=== PATIENT | female | born 1940 | race Caucasian/White ===

== ENCOUNTER 2017-11-10 21:32 | Emergency (ER) | payer MEDICARE, BC ==
[2017-11-10] MEDS: morphine 4 MG/ML VIAL IM (22:54)
[2017-11-10] MEDS: KETOROLAC 30 MG INJ IM (22:55)
[2017-11-10 22:59] LABS: URINE BLOOD (Dip) POC Trace-intact (NEGATIVE); URINE GLUCOSE (Dip) POC Negative (NEGATIVE); URINE KETONES (Dip) POC Trace (NEGATIVE); URINE LEUKOCYTE EST (Dip) POC Negative (NEGATIVE); URINE NITRITE (Dip) POC Negative (NEGATIVE); URINE TOTAL PROTEIN POC 1+ (NEGATIVE)
[2017-11-10] MEDS: METHOCARBAMOL 750 MG TAB PO (23:42)
== END 2017-11-11 00:40 | disposition home or self-care (01) ==
LOC: E/R 11-11 00:40
DX: S76.012A Strain of muscle, fascia and tendon of left hip, initial encounter (principal); S39.92XA Unspecified injury of lower back, initial encounter; I10 Essential (primary) hypertension; X58.XXXA Exposure to other specified factors, initial encounter; Y92.9 Unspecified place or not applicable; Z87.891 Personal history of nicotine dependence; Z79.82 Long term (current) use of aspirin; Z79.84 Long term (current) use of oral hypoglycemic drugs
CPT/HCPCS: 72100; 73510; 81003; 96372; 99284-25

== ENCOUNTER 2017-12-01 20:35 | Inpatient (IN) | payer MEDICARE, BC ==
[2017-12-02 00:41] LABS: ADD MAN DIFF? NO
[2017-12-02 00:43] LABS: BASOPHIL # 0.1 10^3/ul (0.0-0.1); BASOPHILS % 0.8 % (0.0-2.0); EOSINOPHILS # 0.6 10^3/ul (0.0-0.5); EOSINOPHILS % 5.7 % (0.0-7.0); HEMATOCRIT 33.7 % (37.0-47.0); HEMOGLOBIN 10.8 g/dl (12.0-16.0); LYMPHOCYTES # 2.9 10^3/ul (0.8-2.9); LYMPHOCYTES % 28.1 % (15.0-51.0); MEAN CORPUSCULAR HEMOGLOBIN 31.9 pg (29.0-33.0); MEAN CORPUSCULAR VOLUME 99.4 fl (82.0-101.0); MONOCYTE # 1.1 10^3/ul (0.3-0.9); MONOCYTES % 10.5 % (0.0-11.0); NEUTROPHIL # 5.6 10^3/ul (1.6-7.5); NEUTROPHILS % 54.6 % (39.0-77.0); PLATELET COUNT 341 10^3/UL (140-415); RED BLOOD COUNT 3.39 10^6/ul (4.20-5.40); RED CELL DISTRIBUTION WIDTH 14.2 % (11.5-14.5)
[2017-12-02 00:43] LABS: WHITE BLOOD COUNT 10.3 10^3/ul (4.8-10.8)
[2017-12-02 00:59] LABS: INR 1.04; PARTIAL THROMBOPLASTIN TIME 29.7 Sec (25.0-35.0); PROTIME 13.7 Sec (11.9-14.9); PT RATIO 1.1
[2017-12-02 01:02] LABS: ALANINE AMINOTRANSFERASE 17 IU/L (13-69); ALBUMIN 4.1 g/dl (3.3-4.9); ALBUMIN/GLOBULIN RATIO 1.28; ALKALINE PHOSPHATASE 64 IU/L (42-121); ANION GAP 15 (8-16); ASPARTATE AMINO TRANSFERASE 19 IU/L (15-46); BILIRUBIN,INDIRECT 0.2 mg/dl (0-1.1); BILIRUBIN,TOTAL 0.2 mg/dl (0.2-1.3); BLOOD UREA NITROGEN 15 mg/dl (7-20); CALCIUM 9.1 mg/dl (8.4-10.2); CARBON DIOXIDE 28 mmol/L (21-31); CHLORIDE 105 mmol/L (97-110); CREATININE 0.86 mg/dl (0.44-1.00); GLUCOSE 99 mg/dl (70-220); POTASSIUM 4.4 mmol/L (3.5-5.1); SODIUM 144 mmol/L (135-144); TOTAL PROTEIN 7.3 g/dl (6.1-8.1)
[2017-12-02] MEDS: PANTOPRAZOLE 40 MG INJ IV ×2 (01:22→08:00)
[2017-12-02] MEDS: METOPROLOL 25 MG TAB PO (02:41)
[2017-12-02] MEDS: HYDROCODONE/APAP (5/325) TAB PO (03:29)
[2017-12-02] MEDS ORDERED: ACETAMINOPHEN 325 MG TAB PO (03:30)
[2017-12-02] MEDS ORDERED: ONDANSETRON 4 MG INJ IV (03:30)
[2017-12-02] MEDS: SOD CHLORIDE 0.45% 1,000 ML IV ×2 (08:00→21:20)
[2017-12-02] MEDS: ATENOLOL 25 MG TAB PO (08:59)
[2017-12-02] MEDS: metFORMIN 500 MG TAB PO (08:59)
[2017-12-02] MEDS: HYDROCODONE/APAP (7.5/325) TAB PO ×4 (09:21→21:35)
[2017-12-02 11:01] LABS: OCCULT BLOOD STOOL POSITIVE (NEGATIVE)
[2017-12-02 13:21] LABS: HEMATOCRIT 30.3 % (37.0-47.0); HEMOGLOBIN 9.8 g/dl (12.0-16.0)
[2017-12-02] MEDS ORDERED: GLUCOSE GEL 15 GRAM TUBE PO ×2 (16:30)
[2017-12-02] MEDS ORDERED: VANCOMYCIN IV PER PHARMACY XX (16:30)
[2017-12-02] MEDS ORDERED: GLUCAGON 1 MG INJ IM (16:30)
[2017-12-02] MEDS ORDERED: GLUCOSE GEL 15 GRAM TUBE BUCCAL (16:30)
[2017-12-02] MEDS ORDERED: DEXTROSE 50% 50 ML SYRINGE IV ×2 (16:30)
[2017-12-02 17:52] LABS: HEMATOCRIT 30.3 % (37.0-47.0); HEMOGLOBIN 9.8 g/dl (12.0-16.0)
[2017-12-02] MEDS: BISACODYL (EC) 5 MG TAB PO ×2 (17:53→21:11)
[2017-12-02] MEDS: PEG/ELECTROLYTES 4L BTL PO ×2 (17:54→21:11)
[2017-12-02 18:12] LABS: ERYTHROCYTE SEDIMENTATION RATE 32 mm/Hr (0-30)
[2017-12-02] MEDS: VANCOMYCIN 2 GM in SOD CHLORIDE 0.9% 500 ML IVPB (21:11)
[2017-12-02] MEDS: ATORVASTATIN 10 MG TAB PO (21:11)
[2017-12-03 00:46] LABS: HEMATOCRIT 31.8 % (37.0-47.0); HEMOGLOBIN 10.2 g/dl (12.0-16.0)
[2017-12-03] MEDS: HYDROCODONE/APAP (7.5/325) TAB PO ×5 (01:27→22:07)
[2017-12-03] MEDS: PANTOPRAZOLE 40 MG INJ IV (05:51)
[2017-12-03 07:05] LABS: HEMATOCRIT 28.9 % (37.0-47.0); HEMOGLOBIN 9.4 g/dl (12.0-16.0)
[2017-12-03] MEDS: metFORMIN 500 MG TAB PO (08:00)
[2017-12-03] MEDS: ATENOLOL 25 MG TAB PO (08:33)
[2017-12-03] MEDS ORDERED: PROPOFOL 20 ML ×2 (10:58→11:35)
[2017-12-03] MEDS ORDERED: ATROPINE 1 MG INJ (11:05)
[2017-12-03] MEDS ORDERED: hydrALAzine 20 MG INJ IV (12:00)
[2017-12-03] MEDS ORDERED: MIDAZOLAM 1 MG/ML 2 ML INJ IV (12:00)
[2017-12-03] MEDS ORDERED: DIPHENHYDRAMINE 50 MG INJ IV (12:00)
[2017-12-03] MEDS ORDERED: EPHEDrine SULFATE 50 MG/5 ML SYG IV (12:00)
[2017-12-03] MEDS ORDERED: MEPERIDINE 25 MG INJ IV (12:00)
[2017-12-03] MEDS ORDERED: ONDANSETRON 4 MG INJ IV (12:00)
[2017-12-03] MEDS ORDERED: METOCLOPRAMIDE 10 MG INJ IV (12:00)
[2017-12-03] MEDS ORDERED: FENTAnyl 50 MCG/ML VIAL IV ×3 (12:00)
[2017-12-03] MEDS ORDERED: LABETALOL HCL 20MG INJ IV (12:00)
[2017-12-03] MEDS ORDERED: OXYCODONE/ACETAMINOPHEN (5/325) TAB PO ×2 (12:00)
[2017-12-03] MEDS: SOD CHLORIDE 0.45% 1,000 ML IV (12:46)
[2017-12-03 14:04] LABS: HEMATOCRIT 29.3 % (37.0-47.0); HEMOGLOBIN 9.4 g/dl (12.0-16.0)
[2017-12-03] MEDS: VANCOMYCIN 1 GM 250 ML IVPB (14:46)
[2017-12-03] MEDS ORDERED: VANCOMYCIN 1.5 GM in SOD CHLORIDE 0.9% 250 ML IVPB (18:00)
[2017-12-03] MEDS: ATORVASTATIN 10 MG TAB PO (21:05)
[2017-12-04] MEDS: SOD CHLORIDE 0.45% 1,000 ML IV ×3 (00:04→21:49)
[2017-12-04] MEDS: VANCOMYCIN 1 GM 250 ML IVPB ×2 (02:52→14:40)
[2017-12-04] MEDS: PANTOPRAZOLE 40 MG INJ IV (05:30)
[2017-12-04] MEDS: metFORMIN 500 MG TAB PO (07:30)
[2017-12-04] MEDS: HYDROCODONE/APAP (7.5/325) TAB PO ×3 (07:30→20:07)
[2017-12-04 07:38] LABS: ADD MAN DIFF? NO
[2017-12-04 07:41] LABS: WHITE BLOOD COUNT 5.8 10^3/ul (4.8-10.8)
[2017-12-04 07:41] LABS: BASOPHIL # 0.1 10^3/ul (0.0-0.1); BASOPHILS % 1.6 % (0.0-2.0); EOSINOPHILS # 0.5 10^3/ul (0.0-0.5); HEMATOCRIT 28.2 % (37.0-47.0); LYMPHOCYTES # 1.3 10^3/ul (0.8-2.9); LYMPHOCYTES % 21.9 % (15.0-51.0); MEAN CORPUSCULAR HEMOGLOBIN 31.6 pg (29.0-33.0); MEAN CORPUSCULAR HGB CONC 31.9 g/dl (32.0-37.0); MEAN CORPUSCULAR VOLUME 98.9 fl (82.0-101.0); MEAN PLATELET VOLUME 10.1 fl (7.4-10.4); MONOCYTE # 0.4 10^3/ul (0.3-0.9); MONOCYTES % 6.6 % (0.0-11.0); NEUTROPHIL # 3.5 10^3/ul (1.6-7.5); NEUTROPHILS % 60.7 % (39.0-77.0); PLATELET COUNT 244 10^3/UL (140-415); RED BLOOD COUNT 2.85 10^6/ul (4.20-5.40); RED CELL DISTRIBUTION WIDTH 14.2 % (11.5-14.5)
[2017-12-04 08:10] LABS: ANION GAP 13 (8-16); BLOOD UREA NITROGEN 11 mg/dl (7-20); CALCIUM 8.4 mg/dl (8.4-10.2); CARBON DIOXIDE 26 mmol/L (21-31); CHLORIDE 109 mmol/L (97-110); CREATININE 0.82 mg/dl (0.44-1.00); GLUCOSE 100 mg/dl (70-220); POTASSIUM 4.3 mmol/L (3.5-5.1); SODIUM 144 mmol/L (135-144)
[2017-12-04] MEDS: ATENOLOL 25 MG TAB PO (08:51)
[2017-12-04] MEDS: ATORVASTATIN 10 MG TAB PO (20:07)
[2017-12-04] MEDS: CEFOTAXIME 1 GM/50 ML (PMX) 50 ML IVPB (21:48)
[2017-12-05 01:55] LABS: VANCOMYCIN,TROUGH 17.5 ug/ml (10.0-20.0)
[2017-12-05] MEDS: VANCOMYCIN 1 GM 250 ML IVPB ×2 (02:07→15:05)
[2017-12-05] MEDS: HYDROCODONE/APAP (7.5/325) TAB PO ×4 (02:07→19:48)
[2017-12-05] MEDS: SOD CHLORIDE 0.45% 1,000 ML IV ×2 (02:08→14:20)
[2017-12-05] MEDS: PANTOPRAZOLE 40 MG INJ IV (06:06)
[2017-12-05] MEDS: CEFOTAXIME 1 GM/50 ML (PMX) 50 ML IVPB (06:06)
[2017-12-05] MEDS: metFORMIN 500 MG TAB PO (08:37)
[2017-12-05] MEDS: ATENOLOL 25 MG TAB PO (08:38)
[2017-12-05 09:19] LABS: ADD MAN DIFF? NO
[2017-12-05 09:26] LABS: WHITE BLOOD COUNT 6.3 10^3/ul (4.8-10.8)
[2017-12-05 09:26] LABS: BASOPHIL # 0.1 10^3/ul (0.0-0.1); BASOPHILS % 1.4 % (0.0-2.0); EOSINOPHILS # 0.7 10^3/ul (0.0-0.5); EOSINOPHILS % 10.6 % (0.0-7.0); HEMATOCRIT 28.1 % (37.0-47.0); HEMOGLOBIN 9.1 g/dl (12.0-16.0); LYMPHOCYTES # 1.5 10^3/ul (0.8-2.9); LYMPHOCYTES % 24.1 % (15.0-51.0); MEAN CORPUSCULAR HEMOGLOBIN 32.2 pg (29.0-33.0); MEAN CORPUSCULAR HGB CONC 32.4 g/dl (32.0-37.0); MEAN CORPUSCULAR VOLUME 99.3 fl (82.0-101.0); MEAN PLATELET VOLUME 10.4 fl (7.4-10.4); MONOCYTE # 0.6 10^3/ul (0.3-0.9); MONOCYTES % 9.7 % (0.0-11.0); NEUTROPHIL # 3.4 10^3/ul (1.6-7.5); NEUTROPHILS % 54.2 % (39.0-77.0); PLATELET COUNT 241 10^3/UL (140-415); RED BLOOD COUNT 2.83 10^6/ul (4.20-5.40); RED CELL DISTRIBUTION WIDTH 14.1 % (11.5-14.5)
[2017-12-05 09:45] LABS: ANION GAP 14 (8-16); BLOOD UREA NITROGEN 11 mg/dl (7-20); CALCIUM 8.4 mg/dl (8.4-10.2); CARBON DIOXIDE 26 mmol/L (21-31); CHLORIDE 108 mmol/L (97-110); GLUCOSE 96 mg/dl (70-220); POTASSIUM 4.1 mmol/L (3.5-5.1); SODIUM 144 mmol/L (135-144)
[2017-12-05] MEDS: CEFTAZIDIME 2GM/50 ML (PMX) 50 ML IVPB ×2 (14:18→21:50)
[2017-12-05] MEDS ORDERED: VANCOMYCIN 750 MG in SOD CHLORIDE 0.9% 150 ML IVPB (17:00)
[2017-12-05] MEDS: ATORVASTATIN 10 MG TAB PO (19:48)
[2017-12-06] MEDS: VANCOMYCIN 1 GM 250 ML IVPB ×2 (01:54→13:22)
[2017-12-06] MEDS: HYDROCODONE/APAP (7.5/325) TAB PO ×5 (01:54→23:09)
[2017-12-06] MEDS: SOD CHLORIDE 0.45% 1,000 ML IV ×3 (05:20→21:46)
[2017-12-06] MEDS: PANTOPRAZOLE (EC) 40 MG TAB PO (05:34)
[2017-12-06] MEDS: CEFTAZIDIME 2GM/50 ML (PMX) 50 ML IVPB (05:35)
[2017-12-06] MEDS: metFORMIN 500 MG TAB PO (08:53)
[2017-12-06] MEDS: ATORVASTATIN 10 MG TAB PO (20:51)
[2017-12-07] MEDS: VANCOMYCIN 1 GM 250 ML IVPB (02:14)
[2017-12-07] MEDS: HYDROCODONE/APAP (7.5/325) TAB PO ×4 (05:12→20:26)
[2017-12-07] MEDS: PANTOPRAZOLE (EC) 40 MG TAB PO (05:29)
[2017-12-07 07:43] LABS: ADD MAN DIFF? NO
[2017-12-07 07:56] LABS: WHITE BLOOD COUNT 7.3 10^3/ul (4.8-10.8)
[2017-12-07 07:56] LABS: BASOPHIL # 0.1 10^3/ul (0.0-0.1); BASOPHILS % 1.7 % (0.0-2.0); EOSINOPHILS # 0.7 10^3/ul (0.0-0.5); EOSINOPHILS % 10.1 % (0.0-7.0); HEMATOCRIT 30.5 % (37.0-47.0); HEMOGLOBIN 9.8 g/dl (12.0-16.0); LYMPHOCYTES # 2.3 10^3/ul (0.8-2.9); LYMPHOCYTES % 31.3 % (15.0-51.0); MEAN CORPUSCULAR HEMOGLOBIN 31.5 pg (29.0-33.0); MEAN CORPUSCULAR HGB CONC 32.1 g/dl (32.0-37.0); MEAN CORPUSCULAR VOLUME 98.1 fl (82.0-101.0); MEAN PLATELET VOLUME 10.3 fl (7.4-10.4); MONOCYTE # 0.9 10^3/ul (0.3-0.9); MONOCYTES % 11.8 % (0.0-11.0); NEUTROPHIL # 3.3 10^3/ul (1.6-7.5); NEUTROPHILS % 44.8 % (39.0-77.0); PLATELET COUNT 296 10^3/UL (140-415); RED BLOOD COUNT 3.11 10^6/ul (4.20-5.40)
[2017-12-07 08:07] LABS: ANION GAP 15 (8-16); BLOOD UREA NITROGEN 10 mg/dl (7-20); CALCIUM 8.7 mg/dl (8.4-10.2); CARBON DIOXIDE 26 mmol/L (21-31); CHLORIDE 109 mmol/L (97-110); CREATININE 0.73 mg/dl (0.44-1.00); GLUCOSE 95 mg/dl (70-220); POTASSIUM 3.9 mmol/L (3.5-5.1); SODIUM 146 mmol/L (135-144)
[2017-12-07] MEDS: metFORMIN 500 MG TAB PO (08:34)
[2017-12-07] MEDS: SOD CHLORIDE 0.45% 1,000 ML IV (16:08)
[2017-12-07] MEDS: ATORVASTATIN 10 MG TAB PO (20:26)
[2017-12-08] MEDS: HYDROCODONE/APAP (7.5/325) TAB PO ×3 (01:12→11:05)
[2017-12-08] MEDS: SOD CHLORIDE 0.45% 1,000 ML IV (05:54)
[2017-12-08] MEDS: PANTOPRAZOLE (EC) 40 MG TAB PO (05:54)
[2017-12-08] MEDS: metFORMIN 500 MG TAB PO (09:07)
== END 2017-12-08 12:14 | disposition home or self-care (01) | DRG 378 ==
LOC: E/R 20:35 → PP2 12-07 00:03 → MS4 12-02 03:11
PROC: 0DB68ZX Excision of Stomach, Via Natural or Artificial Opening Endoscopic, Diagnostic (ICD-10-PCS; principal; 2017-12-03 10:00)
PROC: 0DJD8ZZ Inspection of Lower Intestinal Tract, Via Natural or Artificial Opening Endoscopic (ICD-10-PCS; 2017-12-03 10:00)
DX: K57.31 Diverticulosis of large intestine without perforation or abscess with bleeding (principal); L03.116 Cellulitis of left lower limb; K63.3 Ulcer of intestine; D62 Acute posthemorrhagic anemia; I69.354 Hemiplegia and hemiparesis following cerebral infarction affecting left non-dominant side; E88.81 Metabolic syndrome and other insulin resistance; K57.33 Diverticulitis of large intestine without perforation or abscess with bleeding; I10 Essential (primary) hypertension; M48.061 Spinal stenosis, lumbar region without neurogenic claudication; M16.10 Unilateral primary osteoarthritis, unspecified hip; E78.5 Hyperlipidemia, unspecified; K29.70 Gastritis, unspecified, without bleeding; K64.4 Residual hemorrhoidal skin tags; L97.529 Non-pressure chronic ulcer of other part of left foot with unspecified severity; G89.29 Other chronic pain; Z96.652 Presence of left artificial knee joint; B96.5 Pseudomonas (aeruginosa) (mallei) (pseudomallei) as the cause of diseases classified elsewhere; B96.20 Unspecified Escherichia coli [E. coli] as the cause of diseases classified elsewhere; B95.2 Enterococcus as the cause of diseases classified elsewhere; E66.9 Obesity, unspecified; Z68.38 Body mass index [BMI] 38.0-38.9, adult; Z90.710 Acquired absence of both cervix and uterus; Z87.891 Personal history of nicotine dependence
CPT/HCPCS: 36415; 73020; 73630-LT; 73718; 80048; 80053; 80202; 82270; 85014; 85018; 85025; 85610; 85651; 85730; 86850; 86900; 86901; 87070; 88305; 88312; 93926; 93971; 96374; 97162; 99285-25; G0378